=== PATIENT | female | born 1985 | race Caucasian/White ===

== ENCOUNTER → 2021-06-21 | Outpatient (CLI) | payer OTHER ==
[~2021-06-21] MED LIST: IBUPROFEN600 MG PO; K-DUR TAB 20 M20 MEQ PO
[2021-06-21 15:37] LABS: HEMOGLOBIN 14.4 gm/dl (12.3-15.3); RED BLOOD COUNT 4.69 M/UL (4.00-5.10); WHITE BLOOD COUNT 8.1 K/UL (4.5-11.0)
[2021-06-21 15:58] LABS: BUN/CREATININE RATIO 15 (0-10)
== END ==
LOC: LAB 14:46
PROVIDERS: Nurse Practitioner Family
DX: Z13.1 Encounter for screening for diabetes mellitus (principal); Z13.220 Encounter for screening for lipoid disorders; I10 Essential (primary) hypertension; R51.9 Headache, unspecified; R53.83 Other fatigue
CPT/HCPCS: 36415; 80053; 80061; 82607; 83036; 84443; 85025

== ENCOUNTER → 2021-08-30 | Outpatient (CLI) | payer OTHER | LOC: KOH-I 10:23 | DX: E04.9 Nontoxic goiter, unspecified (principal) | CPT/HCPCS: 76536 ==

== ENCOUNTER 2021-09-04 07:31 | Emergency (ER) | payer OTHER ==
[2021-09-04 08:13] LABS: HEMOGLOBIN 14.1 gm/dl (12.3-15.3); RED BLOOD COUNT 4.64 M/UL (4.00-5.10); WHITE BLOOD COUNT 10.3 K/UL (4.5-11.0)
[2021-09-04 08:30] LABS: BUN/CREATININE RATIO 15 (0-10)
[2021-09-04] MEDS ORDERED: ZOFRAN ODT 4 MG4 MG SL (09:34)
[2021-09-04] MEDS ORDERED: TORADOL 10 MG T10 MG PO (09:34)
[2021-09-04] MEDS ORDERED: ENDOCET 5-3251 EACH PO (10:17)
== END 2021-09-04 10:33 | disposition home or self-care (01) ==
LOC: ER1 07:31
PROVIDERS: Physician Assistant
DX: N13.2 Hydronephrosis with renal and ureteral calculous obstruction (principal); I10 Essential (primary) hypertension; Z87.442 Personal history of urinary calculi
CPT/HCPCS: 80053; 81001; 85025; 96374; 96375; 99284; J1885; J2270; J2405; J7030

== ENCOUNTER 2021-09-20 19:02 | Emergency (ER) | payer OTHER ==
[~2021-09-20 19:02] MED LIST changes: +ENDOCET 5-3251 EACH PO; +TORADOL 10 MG T10 MG PO; +ZOFRAN ODT 4 MG4 MG SL
[2021-09-20 20:26] LABS: HEMOGLOBIN 14.2 gm/dl (12.3-15.3); RED BLOOD COUNT 4.68 M/UL (4.00-5.10); WHITE BLOOD COUNT 13.9 K/UL (4.5-11.0)
[2021-09-20] MEDS ORDERED: BACTRIM DS TAB1 EACH PO (22:01)
== END 2021-09-20 22:22 | disposition home or self-care (01) ==
LOC: ER1 19:02
PROVIDERS: Physician Assistant
DX: N13.2 Hydronephrosis with renal and ureteral calculous obstruction (principal); I10 Essential (primary) hypertension; N39.0 Urinary tract infection, site not specified
CPT/HCPCS: 80053; 81001; 83690; 84703; 85025; 87086; 96374; 96375; 99284; J1885; J2405